=== PATIENT | female | born 1945 | race Caucasian/White ===

== ENCOUNTER 2016-04-16 13:19 | Inpatient (IN) | payer MEDICARE, BC ==
[~2016-04-16] VITALS: Ht 147.3 cm; Wt 67.4 kg
[2016-04-18] MEDS ORDERED: ASPI81CH37 CHEW (11:49)
[2016-04-18] MEDS ORDERED: METO-309 PO (11:49)
[2016-04-18] MEDS ORDERED: ZETI10TA5 PO (11:49)
[2016-04-18] MEDS ORDERED: PROT40TA PO (11:52)
[2016-04-18] MEDS ORDERED: ROSU40 PO (11:52)
[2016-04-18] MEDS ORDERED: PLAV75TA29 PO (11:52)
[2016-04-19] MEDS ORDERED: METOPROLOL TARTRATE 25 MG TAB PO PRN (10:15)
[2016-04-19] MEDS ORDERED: ceFAZolin 1,000 MG/NS 100 ML IV SCH ×2 (10:15)
[2016-04-19] MEDS ORDERED: SODIUM CHLORID 0.9% 500 ML IV SCH (10:15)
[2016-04-19] MEDS ORDERED: INSULIN HUMAN REGULAR 1,000 UNITS/10 ML VIAL SQ PRN (10:15)
[2016-04-19] MEDS ORDERED: LACTATED RINGER'S 1000 ML IV SCH (10:15)
[2016-04-19 10:29] VITALS: BP 120/70; PULSE 64; RESP 16; TEMP 97.8; O2SAT 99
[2016-04-19 10:37] LABS: AUTOMATED NEUTROPHIL # 2.2 TH/MM3 (1.8-7.7); BASOPHIL % 1.2 % (0.0-2.0); EOSINOPHIL % 0.8 % (0.0-4.0); HEMATOCRIT 38.1 % (35.0-46.0); HEMO FLAGS DIFF FINAL; LYMPH % 27.9 % (9.0-44.0); MEAN CELL VOLUME 82.7 FL (80.0-100.0); MEAN CORPUSCULAR HEMOGLOBIN 27.9 PG (27.0-34.0); MEAN CORPUSCULAR HGB CONC 33.7 % (32.0-36.0); MONO % 9.5 % (0.0-8.0); NEUT % 60.6 % (16.0-70.0); PLATELET COUNT 161 TH/MM3 (150-450); RED BLOOD COUNT 4.61 MIL/MM3 (4.00-5.30); RED CELL DISTRIBUTION WIDTH 14.7 % (11.6-17.2); WHITE BLOOD COUNT 3.6 TH/MM3 (4.0-11.0)
[2016-04-19] MEDS ORDERED: FAMOTIDINE 20 MG/2 ML VIAL ONE (12:05)
[2016-04-19] MEDS ORDERED: BUPIVACAINE/EPINEPHRINE 0.25% PF 30 ML VIAL ONE (13:25)
--- NOTE | 2016-04-19 22:34 | EKG ---
Date Performed: 04/19/2016 Time Performed: 10:31:08 PTAGE: 70 years EKG: SINUS BRADYCARDIA LOW QRS VOLTAGE IN PRECORDIAL LEADS BORDERLINE ECG PREVIOUS TRACING : 05/08/2012 06.17 DOCTOR: Javan De La O Interpretating Date/Time 04/19/2016 22:32:48
== END 2016-04-19 14:08 | disposition home or self-care (01) | DRG 392 ==
LOC: HSDI 04-19 09:27
PROVIDERS: ADMIT Surgery; ATTEND Surgery
DX: K44.9 Diaphragmatic hernia without obstruction or gangrene (principal); Z53.8 Procedure and treatment not carried out for other reasons
CPT/HCPCS: 85025; 93005; 99211; G0463; J0690; J7120

== ENCOUNTER 2016-04-25 15:38 | Inpatient (IN) | payer MEDICARE, BC ==
[~2016-04-25] VITALS: Ht 147.3 cm; Wt 69.6 kg
[~2016-04-25 15:38] MED LIST: ASPI81CH37 CHEW; METO-309 PO; PROT40TA PO; ROSU40 PO; ZETI10TA5 PO
[2016-04-30] MEDS ORDERED: VITACAP7 PO (14:18)
[2016-05-01] MEDS ORDERED: METOPROLOL TARTRATE 25 MG TAB PO PRN (11:45)
[2016-05-01] MEDS ORDERED: LACTATED RINGER'S 1000 ML IV SCH (11:45)
[2016-05-01] MEDS ORDERED: SODIUM CHLORID 0.9% 500 ML IV SCH (11:45)
[2016-05-01] MEDS ORDERED: INSULIN HUMAN REGULAR 1,000 UNITS/10 ML VIAL SQ PRN (11:45)
[2016-05-01] MEDS ORDERED: ceFAZolin 1,000 MG/NS 100 ML IV SCH ×2 (11:45)
[2016-05-01 11:55] VITALS: BP 117/64; PULSE 56; RESP 16; TEMP 97.8; O2SAT 98
[2016-05-01] MEDS ORDERED: LACTATED RINGER'S 1000 ML INJ 1,000 ML IV ONE (12:00)
[2016-05-01] MEDS ORDERED: ePHEDrine/NS 25 MG/5 ML SYR IV ONE (12:00)
[2016-05-01] MEDS ORDERED: NEOSTIGMINE 3 MG/3 ML SYR IV ONE (12:00)
[2016-05-01] MEDS ORDERED: ONDANSETRON HCL 4 MG/2 ML VIAL IV PUSH ONE (12:00)
[2016-05-01] MEDS ORDERED: PROPOFOL 200 MG/20 ML AMP IV ONE (12:00)
[2016-05-01] MEDS ORDERED: BUPIVACAINE/EPINEPHRINE 0.25% PF 30 ML VIAL ONE (14:12)
[2016-05-01] MEDS ORDERED: MIDAZOLAM HCL 2 MG/2 ML VIAL ONE (14:27)
[2016-05-01] MEDS ORDERED: FAMOTIDINE 20 MG/2 ML VIAL ONE (14:27)
[2016-05-01] MEDS ORDERED: fentaNYL CITRATE 250 MCG/5 ML AMP ONE (17:05)
[2016-05-01] MEDS ORDERED: SUGAMMADEX SODIUM 200 MG/2 ML VIAL IV PUSH ONE ×2 (17:30)
[2016-05-01] MEDS ORDERED: DO NOT ADM ANY ANTICOAGULANT DRUGS XX PRN (17:33)
--- NOTE | 2016-05-01 17:36 | HHI.PR ---
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 Ed Chiu M.D. Procedure: Laparoscopic reduction of hiatal hernia Laparoscopic repair of hiatal hernia with mesh Laparoscopic Tank fundoplication Findings: Hiatal hernia Specimen(s) removed: None Estimated blood loss: Minimal Anesthesia: General Drains: None IVF Patient to: PACU Patient Condition: Good Implant/Devices: SEE IMPLANT LOG (if applicable) Date/Time of Procedure: SEE SURGICAL CARE RECORD Berlin Newell MD May 01, 2016 17:36
[2016-05-01] MEDS ORDERED: HYDR-3516 PO (17:42)
[2016-05-01] MEDS ORDERED: SODIUM CHLORIDE 0.9% FLUSH 5 ML FLUSH IVF PRN (17:45)
[2016-05-01] MEDS ORDERED: ONDANSETRON HCL 4 MG/2 ML VIAL IV PRN (17:45)
[2016-05-01] MEDS ORDERED: METOCLOPRAMIDE HCL 10 MG/2 ML VIAL IVS PRN (17:45)
[2016-05-01] MEDS ORDERED: Post-op Orders (for Pharmacy) MISC XX ONE (17:45)
[2016-05-01] MEDS ORDERED: ACETAMINOPHEN/HYDROcodone 325 MG/5 MG TAB PO PRN ×2 (17:45)
[2016-05-01] MEDS ORDERED: GLYCOPYRROLATE 0.2 MG/ML VIAL IV ONE (18:20)
[2016-05-01] MEDS ORDERED: GLYCOPYRROLATE 0.2 MG/ML VIAL ONE ×2 (18:22→18:34)
[2016-05-01] MEDS: SODIUM CHLORIDE 0.9% FLUSH 5 ML FLUSH IVF SCH (20:46)
[2016-05-01] MEDS ORDERED: EZETIMIBE 10 MG TAB PO SCH (21:00)
[2016-05-01] MEDS ORDERED: ATORVASTATIN 80 MG TAB PO SCH (21:00)
[2016-05-01] MEDS ORDERED: METOPROLOL TARTRATE 50 MG TAB PO SCH (21:00)
[2016-05-02] MEDS: SODIUM CHLORIDE 0.9% FLUSH 5 ML FLUSH IVF SCH (08:06)
[2016-05-02] MEDS ORDERED: PANTOPRAZOLE SOD 40 MG DELAYED RELEASE TAB PO SCH (09:00)
[2016-05-02 09:32] VITALS: BP 103/59; PULSE 66; RESP 18; TEMP 98.1; O2SAT 95
--- NOTE | 2016-05-02 15:31 | TN ---
cc: FAITH NEWELL M.D. DATE OF SURGERY: 05/01/2016 PREOPERATIVE DIAGNOSIS Large hiatal hernia with reflux and history of Gomez's. POSTOPERATIVE DIAGNOSIS: Large hiatal hernia with reflux and history of Gomez's. PROCEDURE Laparoscopic reduction of hiatal hernia. Laparoscopic Tank fundoplication. Laparoscopic repair of hiatal hernia with mesh. ANESTHESIA General SURGEON Dr. Newell. COOLING TOWER TECHNICIAN: Dr. Ed Chiu. INDICATIONS This is a pleasant 70-year-old female has a large hiatal hernia with 3/4 of her stomach in her chest. She also has a history of reflux with Gomez's, plans were made for above. PROCEDURE: The patient is placed in the operating room, anesthesia after endotracheal anesthesia her abdomen is prepped with Betadine. Made an incision above the umbilicus a 10 mm trocar was introduced. Four other working ports were placed two on the left, two on the right of the abdomen. Rebecca flex liver retractor is placed in the inferior port on the right to retract the liver. We were able to see the hiatal hernia. This is completely reduced. Taking the harmonic scalpel. We then dissected on the right and the left of the sinan to release the hernia sac. Take the short gastrics down with harmonic scalpel. We are able to place a Rebecca Flex shepherds hook around the esophagus. the vagus nerve posteriorly. We then reapproximate the sinan of the diaphragm with Ethibond suture. We placed three of them, reapproximate this. We then take the short gastrics down, wrap the fundus around the esophagus creating a fundoplication in typical fashion with three Ethibond sutures securing it to the esophagus as well. This was all done over a 44 bougie up. Once this was done the bougie is removed. We then placed a piece BioA mesh to buttress the hiatal hernia diaphragmatic sinan repair. This is kept in place with Tisseel. After this was done we then remove the trocars and the fascial layer at the umbilicus closed with a 0 Vicryl and skin is close at all four sites with 4-0 Vicryl. Steri-Strips applied. Sterile bandage applied. The patient did well had no immediate postop complications. MD PAWAN Conroy/cayla /2:53 PM /3:24 PM
== END 2016-05-02 11:06 | disposition home or self-care (01) | DRG 328 ==
LOC: HSDI 05-01 10:53 → HPAC 05-02 05:24
PROVIDERS: ADMIT Surgery; ATTEND Surgery
PROC: 0BUR4JZ (ICD-10-PCS; 2016-05-01)
PROC: 0BUS4JZ (ICD-10-PCS; 2016-05-01)
PROC: 0DV44ZZ Restriction of Esophagogastric Junction, Percutaneous Endoscopic Approach (ICD-10-PCS; principal; 2016-05-01 15:21)
DX: K44.9 Diaphragmatic hernia without obstruction or gangrene (principal); K22.70 Barrett's esophagus without dysplasia; K21.0 Gastro-esophageal reflux disease with esophagitis; I25.10 Atherosclerotic heart disease of native coronary artery without angina pectoris; I25.2 Old myocardial infarction; Z87.891 Personal history of nicotine dependence
CPT/HCPCS: 94150; C1781; J0690; J2250; J2405; J2710; J3010; J7120